=== PATIENT | female | born 1995 | race American Indian/Alaskan Native ===

== ENCOUNTER 2017-07-08 23:28 | Emergency (ER) | payer SELFPAY ==
[2017-07-09 00:56] VITALS: BP 125/71
[2017-07-09 02:01] LABS: HCG Qualitative,Urine Negative (Negative)
[2017-07-09 02:08] LABS: Bacteria,Urine 2+ /HPF (Negative); Bilirubin,Urine NEG (Negative); Blood,Urine NEG (Negative); Color,Urine Yellow (Yellow); Mucus,Urine 3+ /HPF; Nitrite,Urine NEG (Negative); Urobilinogen,Urine < 2.0 mg/dL (<2.0)
--- NOTE | 2017-07-09 04:40 | Emergency Department Report ---
ED Female HPI - General Chief complaint: Urogenital-Female Stated complaint: VAGINAL RASH Time Seen by Provider: 07/09/17 04:38 Source: patient, family Mode of arrival: Ambulatory Limitations: No Limitations - History of Present Illness Initial comments: Patient here forward she thinks she has a yeast infection times one week and her last menstrual period was June 04 for 2 weeks and that is unusual for her. She reports urinary burning and frequency and denies any vaginal discharge report itching. Denies any blood in her urine. Denies any abdominal pain or back pain. Denies any fever or chills. No [id number] medication taken. MD Complaint: dysuria, other (vaginal itching) Onset/Timin -: week(s) Severity scale (0 -10): 0 Consistency: intermittent Worsens with: urination (urinary burning) Are you Now?: No Last Menstrual Period: 06/04/17 EDC: 03/11/18 Associated Symptoms: dysuria, other (vaginal itching). denies: vaginal discharge, vaginal bleeding, abdominal pain, nausea/vomiting, fever/chills, headaches, loss of appetite, hematuria, rash, seizure, shortness of breath, syncope, weakness - Related Data Sexually active: Yes Previous Rx's Medication Instructions Recorded Last Taken Type Famotidine [Pepcid] 20 mg PO BID #40 tablet 12/22/15 Unknown Rx Ibuprofen [Motrin] 600 mg PO Q8H PRN #30 tablet 12/22/15 Unknown Rx Promethazine [Phenergan TAB] 25 mg PO Q6HR PRN #20 tab 12/22/15 Unknown Rx Fluconazole [Diflucan TAB] 150 mg PO ONCE 2 Days #2 tablet 07/09/17 Unknown Rx Nitrofurantoin Monohyd/M-Cryst 100 mg PO Q12H 7 Days #14 capsule 07/09/17 Unknown Rx [Macrobid 100 mg Capsule] Allergies Allergy/AdvReac Type Severity Reaction Status Date / Time No Known Allergies Allergy Unverified 12/22/15 02:27 ED Review of Systems ROS: Stated complaint: VAGINAL RASH Other details as noted in HPI Comment: All other systems reviewed and negative Constitutional: no symptoms reported Respiratory: no symptoms reported Cardiovascular: denies: chest pain, palpitations, edema, syncope, paroxysmal nocturnal dyspnea Gastrointestinal: denies: abdominal pain, nausea, vomiting, diarrhea, constipation, hematemesis, melena, hematochezia Genitourinary: dysuria, abnormal menses, other (vaginal itching). denies: urgency, frequency, hematuria, discharge, dyspareunia Musculoskeletal: denies: back pain, joint swelling, arthralgia, myalgia Skin: denies: rash Neurological: denies: headache ED Past Medical Hx - Past Medical History Previous Medical History?: No - Surgical History Past Surgical History?: No - Family History Family history: no significant - Social History Smoking Status: Never Smoker Substance Use Type: None - Medications Home Medications: Home Medications Medication Instructions Recorded Confirmed Last Taken Type Famotidine [Pepcid] 20 mg PO BID #40 tablet 12/22/15 Unknown Rx Ibuprofen [Motrin] 600 mg PO Q8H PRN #30 tablet 12/22/15 Unknown Rx Promethazine [Phenergan TAB] 25 mg PO Q6HR PRN #20 tab 12/22/15 Unknown Rx Fluconazole [Diflucan TAB] 150 mg PO ONCE 2 Days #2 tablet 07/09/17 Unknown Rx Nitrofurantoin Monohyd/M-Cryst 100 mg PO Q12H 7 Days #14 capsule 07/09/17 Unknown Rx [Macrobid 100 mg Capsule] ED Physical Exam - General Limitations: No Limitations General appearance: alert, in no apparent distress - Head Head exam: Present: atraumatic, normocephalic, normal inspection - Eye Eye exam: Present: normal appearance, PERRL, EOMI Pupils: Present: normal accommodation - ENT ENT exam: Present: normal exam, normal orophraynx, mucous membranes moist - Neck Neck exam: Present: normal inspection, full ROM, other (no C-spine tenderness). Absent: tenderness, meningismus, lymphadenopathy, thyromegaly - Respiratory Respiratory exam: Present: normal lung sounds bilaterally. Absent: respiratory distress, chest wall tenderness, accessory muscle use - Cardiovascular Cardiovascular Exam: Present: regular rate, normal rhythm, normal heart sounds. Absent: systolic murmur, diastolic murmur - GI/Abdominal GI/Abdominal exam: Present: soft, normal bowel sounds. Absent: distended, tenderness, guarding, rebound, rigid, organomegaly, mass, bruit, pulsatile mass , hernia - Extremities Exam Extremities exam: Present: normal inspection, full ROM, normal capillary refill , other (clubbing, cyanosis or edema. +2 pulses in all extremities and no neurovascular compromise). Absent: tenderness, pedal edema, joint swelling, calf tenderness - Back Exam Back exam: Present: normal inspection, full ROM, other (ambulates without any difficulties). Absent: tenderness, CVA tenderness (R), CVA tenderness (L), muscle spasm, paraspinal tenderness, vertebral tenderness, rash noted - Neurological Exam Neurological exam: Present: alert, oriented X3, normal gait, reflexes normal. Absent: motor sensory deficit - Psychiatric Psychiatric exam: Present: normal affect, normal mood - Skin Skin exam: Present: warm, dry, intact, normal color. Absent: rash ED Course Vital Signs 07/09/17 00:52 Temperature 98.6 F Pulse Rate 66 Respiratory 18 Rate Blood Pressure 125/71 O2 Sat by Pulse 100 Oximetry - Reevaluation(s) Reevaluation #1: 07/09/17 05:48 Patient given Macrobid one tablet emergency room, orally hydrated and tolerated well. Urine culture sent. ED Medical Decision Making - Lab Data Lab Results 07/09/17 Range/Units 01:14 Urine Color Yellow (Yellow) Urine Turbidity Clear (Clear) Urine pH 7.0 (5.0-7.0) Ur Specific [place] 1.025 (1.003-1.030) Urine Protein 30 mg/dl (Negative) mg/dL Urine Glucose (UA) Neg (Negative) mg/dL Urine Ketones Neg (Negative) mg/dL Urine Blood Neg (Negative) Urine Nitrite Neg (Negative) Ur Reducing Substances Not Reportable Urine Bilirubin Neg (Negative) Urine Ictotest Not Reportable Urine Urobilinogen < 2.0 (<2.0) mg/dL Ur Leukocyte Esterase Lg (Negative) Urine WBC (Auto) 150.0 H (0.0-6.0) /HPF Urine RBC (Auto) 41.0 (0.0-6.0) /HPF U Epithel Cells (Auto) 2.0 (0-13.0) /HPF Urine Bacteria (Auto) 2+ (Negative) /HPF Urine Mucus 3+ /HPF Urine HCG, Qual Negative (Negative) Urine culture pending - Medical Decision Making ED course: Seen here complaining of urinary burning in and irregular menstrual cycle that's been going on for a week. She says she states she might have a yeast infection but she is not having any vaginal discharge or bleeding she is having and vaginal itching. I discussed the patient at her urinalysis showed that she had positive bacteria increased white blood cell on large amount of leukocyte esterase with no blood. I discussed with her that she has a urinary tract infection and will need to be treated with antibiotic. Patient does not have a primary care physician so I told her she needs to follow up in 7 days at [facility]. She was not concerned for any STDs. I also told her that she can follow up at [facility] for [facility] to evaluate for irregular menstrual cycles. Her urine test was negative. Patient was given Macrobid 100 mg when necessary emergency room and I discussed with her that she'll be placed on Macrobid and antifungal to use if she develops a yeast infection. She was understanding of diagnosis and treatment plan and patient discharged home with her family prescription for Macrobid and Diflucan 1 Critical care attestation.: If time is entered above; I have spent that time in minutes in the direct care of this critically ill patient, excluding procedure time. ED Disposition Clinical Impression: Acute cystitis without hematuria, Vaginal itching Disposition: DC-01 TO HOME OR SELFCARE Is pt being admited?: No Does the pt Need Aspirin: No Condition: Stable Instructions: Dysuria (ED), Urinary Tract Infection in Women (ED) Additional Instructions: Please take all antibiotic as prescribed He can take Diflucan, one tablet today and then take another tablet after you complete antibiotic for urinary tract infection Please follow up at [facility] for [facility] to regulate menstrual cycle and also for primary care. See discharge instruction paperwork for detail Please drink plenty of fluids to include cranberry juice and water daily. Prescriptions: Fluconazole [Diflucan TAB] 150 mg PO ONCE 2 Days #2 tablet Nitrofurantoin Monohyd/M-Cryst [Macrobid 100 mg Capsule] 100 mg PO Q12H 7 Days # 14 capsule Referrals: [facility] [Outside] - 3-5 Days Forms: Work/School Release Form(ED), Accompanied Note
[2017-07-09] MEDS ORDERED: MACROBID PO ONE (05:06)
== END 2017-07-09 06:01 | disposition home or self-care (01) ==
LOC: ED 23:28
DX: N39.0 Urinary tract infection, site not specified (principal)
CPT/HCPCS: 81001; 81025; 87086; 99283

== ENCOUNTER 2018-08-14 00:08 | Emergency (ER) | payer OTHER ==
[2018-08-14 00:15] VITALS: BP 129/73
--- NOTE | 2018-08-14 04:16 | Emergency Department Report ---
- General Chief complaint: Skin/Abscess/Foreign Body Stated complaint: BODY RASH Time Seen by Provider: 08/14/18 04:08 Source: patient Mode of arrival: Ambulatory Limitations: No Limitations - History of Present Illness Initial comments: 22-year-old -[place] female presents to the emergency room for insect bites to her abdomen upper extremities. Patient reports that the lesions itch. Patient has taken nothing for the itchiness. Patient denies any past medical history she takes no medications on a daily basis and has no known drug allergies. She denies any fever chills nausea vomiting. MD complaint: insect bite/sting Severity: mild Improves with: none (has not tried any medications) Associated symptoms: itching Treatments Prior to Arrival: none - Related Data Previous Rx's Medication Instructions Recorded Last Taken Type Famotidine [Pepcid] 20 mg PO BID #40 tablet 12/22/15 Unknown Rx Ibuprofen [Motrin] 600 mg PO Q8H PRN #30 tablet 12/22/15 Unknown Rx Promethazine [Phenergan TAB] 25 mg PO Q6HR PRN #20 tab 12/22/15 Unknown Rx Fluconazole [Diflucan TAB] 150 mg PO ONCE 2 Days #2 tablet 07/09/17 Unknown Rx Nitrofurantoin Monohyd/M-Cryst 100 mg PO Q12H 7 Days #14 capsule 07/09/17 Unknown Rx [Macrobid 100 mg Capsule] Allergies Allergy/AdvReac Type Severity Reaction Status Date / Time No Known Allergies Allergy Verified 08/14/18 00:15 Abscess Boil HPI - HPI Chief Complaint: Skin/Abscess/Foreign Body Stated Complaint: BODY RASH Time Seen by Provider: 08/14/18 04:08 Home Medications: Previous Rx's Medication Instructions Recorded Last Taken Type Famotidine [Pepcid] 20 mg PO BID #40 tablet 12/22/15 Unknown Rx Ibuprofen [Motrin] 600 mg PO Q8H PRN #30 tablet 12/22/15 Unknown Rx Promethazine [Phenergan TAB] 25 mg PO Q6HR PRN #20 tab 12/22/15 Unknown Rx Fluconazole [Diflucan TAB] 150 mg PO ONCE 2 Days #2 tablet 07/09/17 Unknown Rx Nitrofurantoin Monohyd/M-Cryst 100 mg PO Q12H 7 Days #14 capsule 07/09/17 Unknown Rx [Macrobid 100 mg Capsule] Allergies/Adverse Reactions: Allergies Allergy/AdvReac Type Severity Reaction Status Date / Time No Known Allergies Allergy Verified 08/14/18 00:15 ED Review of Systems ROS: Stated complaint: BODY RASH Other details as noted in HPI Comment: All other systems reviewed and negative Skin: rash ED Past Medical Hx - Past Medical History Previous Medical History?: No - Surgical History Past Surgical History?: No - Social History Smoking Status: Never Smoker Substance Use Type: None - Medications Home Medications: Home Medications Medication Instructions Recorded Confirmed Last Taken Type Famotidine [Pepcid] 20 mg PO BID #40 tablet 12/22/15 Unknown Rx Ibuprofen [Motrin] 600 mg PO Q8H PRN #30 tablet 12/22/15 Unknown Rx Promethazine [Phenergan TAB] 25 mg PO Q6HR PRN #20 tab 12/22/15 Unknown Rx Fluconazole [Diflucan TAB] 150 mg PO ONCE 2 Days #2 tablet 07/09/17 Unknown Rx Nitrofurantoin Monohyd/M-Cryst 100 mg PO Q12H 7 Days #14 capsule 07/09/17 Unknown Rx [Macrobid 100 mg Capsule] ED Physical Exam - General Limitations: No Limitations General appearance: alert, in no apparent distress - Head Head exam: Present: atraumatic, normocephalic - ENT ENT exam: Present: mucous membranes moist - Neurological Exam Neurological exam: Present: alert, oriented X3 - Psychiatric Psychiatric exam: Present: normal affect, normal mood - Expanded Skin Exam Expanded Type of lesion: Present: bite/sting Distribution of rash: abdomen, RUE Description of rash: Present: erythematous, swelling ED Course Vital Signs 08/14/18 00:09 Temperature 97.9 F Pulse Rate 90 Respiratory 18 Rate Blood Pressure 129/73 O2 Sat by Pulse 100 Oximetry Critical care attestation.: If time is entered above; I have spent that time in minutes in the direct care of this critically ill patient, excluding procedure time. ED Disposition Clinical Impression: Rash and nonspecific skin eruption Insect bites Qualifiers: Encounter type: initial encounter Site of insect bite: abdominal wall Qualified Code(s): S30.861A - Insect bite (nonvenomous) of abdominal wall, initial encoun ter; W57.XXXA - Bitten or stung by nonvenomous insect and other nonvenomous arthropods, initial encounter Disposition: DC-01 TO HOME OR SELFCARE Is pt being admited?: No Does the pt Need Aspirin: No Condition: Stable Instructions: Insect Bite or Sting (ED) Additional Instructions: Take [id number] Benadryl and anti-itch cream to bites. Follow-up with a trout farmer to get worse. Referrals: GABRIELLA MONET MD [Primary Care Provider] - 3-5 Days [facility] [Provider Group] - 3-5 Days
== END 2018-08-14 04:27 | disposition home or self-care (01) ==
LOC: ED 00:08
DX: S30.861A Insect bite (nonvenomous) of abdominal wall, initial encounter (principal); W57.XXXA Bitten or stung by nonvenomous insect and other nonvenomous arthropods, initial encounter; Y93.89 Activity, other specified; Y92.89 Other specified places as the place of occurrence of the external cause; Y99.8 Other external cause status
CPT/HCPCS: 99282